=== PATIENT | male | born 1955 | race Caucasian/White ===

== ENCOUNTER 2018-12-14 05:38 | Day surgery (SDC) | payer OTHER ==
[~2018-12-14] VITALS: Ht 177.8 cm; Wt 99.3 kg
--- NOTE | ~2018-12-14 | O ---
[facility] [place] [address] OPERATIVE REPORT Name: GUILLE PERALTA Room #: 150-7 [facility] M..#: [id number] Admission: 12/14/18 ������������������ Attend Phys: Bill Fuentes MD Discharge: ������������������ Date of : 51 Report #: [id number] THIS REPORT FOR: //name// CC: Walker Fuentes DATE OF SERVICE: 12/14/2018 RESIDENTIAL DRIVER: None. PREOPERATIVE DIAGNOSIS: Unilateral left upper lid ptosis. POSTOPERATIVE DIAGNOSIS: Unilateral left upper lid ptosis. OPERATION PERFORMED: Unilateral left upper lid ptosis repair. ANESTHESIA: Local anesthesia with IV sedation. COMPLICATIONS: None. INDICATIONS FOR SURGERY: This patient has left upper lid ptosis with superior visual field loss. Visual field testing demonstrates dense superior visual defects. Retesting with the upper lid elevated shows an improvement in visual field loss of over 30% and in excess of 12 degrees. The current procedure is undertaken in order to improve the patient's visual function. Informed consent was obtained to include but not limited to the potential risks for bleeding, scarring, infection, loss of vision, failure to improve the problem, need for further surgery and need for adjustment of lid height. DESCRIPTION OF PROCEDURE: The patient was taken to the operating room, where a left upper lid crease was drawn with a skin marking pen. The incision was then made with Loreto scissors and dissected down to the orbital septum. Hemostasis was achieved with a monopolar cautery as it was throughout the case. The orbital septum was then entered and the preaponeurotic fat identified. The levator aponeurosis was then disinserted from the anterior surface of the tarsal plate and dissected free in the avascular Dubon's muscle plane. The aponeurosis was then advanced onto the anterior surface of the tarsal plate and reattached with mattress double-arm 6-0 Novafil sutures, adjusting for height and contour. The redundant aponeurosis was then amputated. The upper lid crease was then reformed with interrupted 6-0 chromic sutures. The skin was closed with interrupted 6-0 plain gut suture. The wound was then cleaned and dressed with ophthalmic antibiotic ointment. [address] [address] OPERATIVE REPORT Name: GUILLE PERALTA Room #: 150-7 [facility].#: [id number] Admission: 12/14/18 ������������������ Attend Phys: Bill Fuentes MD Discharge: ������������������ Date of : 51 Report #: [id number] The patient was then transported to the recovery area, having tolerated the procedure well with no anesthesia or operative complications being noted. ��������������������������������������������� ���������������������������������������� By: ��������������������������������������������� [id number] Bill Fuentes MD /nt
[~2018-12-14 05:38] MED LIST: AMBEREN PO; ASPIRIN EC81 M1 PO; AVELOX 400 MG400 MG PO; BACTRIM 400-801 EACH; BENTYL 10 MG CA10 M1 PO; BISOPROLOL FUMAR5 M1 PO; CHILDREN'S ALLE10 MG PO; CLARITIN10 MG PO; CLEOCIN HCL150 MG PO; FIBERCON625 M1 PO; FLOMAX0.4 MG PO; FLONASE 0.05%50 MCG NASAL; HYDROCODON-ACE1 EAC7; HYDROCODON-ACE1 EAC7 PO; MUCINEX600 MG PO; MULTI VITAMIN1 EACH PO; NEXIUM20 MG PO; OCUVITE TABLET1 EAC1 PO; PERCOCET 5-3251 EACH PO; PRILOSEC 20 MG20 MG PO; PROBIOTIC1 EAC1 PO; STOOL SOFTENER1 EAC2 PO; TYLENOL EXTRA500 MG PO; ZIAC 5-6.25 MG1 EACH PO
[2018-12-14 07:16] LABS: CALCIUM 8.8 mg/dL (8.5-10.1); CREATININE 1.3 mg/dL (0.7-1.3); POTASSIUM 3.5 mmol/L (3.5-5.1)
[2018-12-14 08:15] VITALS: BP 119/69
== END 2018-12-14 09:00 | disposition home or self-care (01) ==
LOC: OR 05:38 → TBA 05:38 → OR 06:33
PROVIDERS: Ophthalmology
DX: H02.412 Mechanical ptosis of left eyelid (principal); H53.452 Other localized visual field defect, left eye; I10 Essential (primary) hypertension; K21.9 Gastro-esophageal reflux disease without esophagitis; Z90.49 Acquired absence of other specified parts of digestive tract; Z98.890 Other specified postprocedural states; Z88.0 Allergy status to penicillin; Z79.82 Long term (current) use of aspirin; Z87.891 Personal history of nicotine dependence; Z79.899 Other long term (current) drug therapy
CPT/HCPCS: 50010; 50101; 50386; 50398; 51636; 56528; 56531; 70005

== ENCOUNTER → 2020-06-23 | Outpatient (CLI) | payer OTHER ==
[~2020-06-23] MED LIST changes: +BISOPROLOL-HCT1 EACH PO
== END ==
LOC: LAB 10:27
PROVIDERS: ATTEND Ophthalmology
DX: Z01.812 Encounter for preprocedural laboratory examination (principal); Z20.828 Contact with and (suspected) exposure to other viral communicable diseases

== ENCOUNTER 2020-06-26 07:19 | Day surgery (SDC) | payer OTHER ==
[~2020-06-26] VITALS: Ht 177.8 cm; Wt 103.9 kg
--- NOTE | ~2020-06-26 | O ---
[facility] [place] [address] OPERATIVE REPORT Name: GUILLE PERALTA Room #: 150-7 [facility] M.R.#: [id number] Admission: 06/26/20 Attend Phys: Bill Fuentes MD Discharge: Date of : 51 Report #: [id number] THIS REPORT FOR: cc: Walker Dejesus MD,Walker Fuentes,Bill Fulton MD ~ CC: ANDREW Fuentes DATE OF SERVICE: 06/26/2020 PREOPERATIVE DIAGNOSIS: Unilateral left sided nasal lacrimal duct obstruction. POSTOPERATIVE DIAGNOSIS: Unilateral left sided nasal lacrimal duct obstruction. OPERATION PERFORMED: Unilateral left sided endoscopic dacryoplasty with silicone intubation. ANESTHESIA: General. COMPLICATIONS: None. INDICATIONS FOR SURGERY: This patient has acquired unilateral nasal lacrimal duct stenosis with chronic tearing and discharge. The current procedures are undertaken in order to improve the patient's level of lacrimal outflow and visual clarity. Informed consent was obtained to include but not limited to the potential risks for damage to the eye, loss of vision, bleeding, infection, failure to improve the problem and need for further surgery. DESCRIPTION OF OPERATION: The patient was taken to the operating room, where general anesthesia was administered. The medial canthus was anesthetized with 2% Xylocaine with epinephrine mixed with equal parts of 0.75% Marcaine with Wydase. The lateral wall of the nose was then injected with the same anesthetic mixture. The nose was packed with Afrin-soaked Cottonoids. The patient was then prepped and draped in the usual sterile fashion. The superior and inferior puncta were then atraumatically dilated with a punctum dilator. A size 0 lacrimal probe was then passed through the superior canalicular system and through the stenosed nasal lacrimal duct. The nasal packing was removed and the endoscope was brought into the field. The inferior turbinate was gently infractured with a [place] periosteal elevator to allow visualization of the inferior meatus in the area of the opening of the valve of Hasner in the nose. The probe was found and confirmed to be in the proper [address] [address] OPERATIVE REPORT Name: FABIANGUILLE SIMEON Room #: 150-7 [facility] M.R.#: [id number] Admission: 06/26/20 Attend Phys: Bill Fuentes MD Discharge: Date of : 51 Report #: [id number] location. It was removed and subsequently replaced with a size 1 and a size 2 Garay probe, which also had their passage confirmed endoscopically to be in the proper location. A 3 x 15 LacriCatheter was lubricated with a small quantity of ophthalmic antibiotic ointment. The LacriCatheter was then passed through the superior canalicular system and the stenosed nasal lacrimal duct. The LacriCatheter was confirmed to be in the proper location endoscopically intranasally in the inferior meatus. The LacriCatheter was inflated to 9 atmospheres for 90 seconds and deflated. The catheter was then inflated to 9 atmospheres for 60 seconds. The catheter was then withdrawn to the proximal black ring. It was then inflated to 9 atmospheres for 90 seconds. The balloon was then deflated and reinflated to 9 atmospheres for 60 seconds. The balloon was the aspirated and withdrawn to the distal black ring. It was then inflated to 9 atmospheres for 90 seconds. The balloon was deflated and reinflated to 9 atmospheres for 60 seconds. The balloon was then deflated and vigorously aspirated as it was withdrawn through the superior canalicular system. A Vanegas tube was then passed through the superior canalicular system and out the dilated duct. The Vanegas tube was secured under the inferior turbinate in the inferior meatus with a Vanegas hook and retrieved endoscopically. The Vanegas tube was then passed through the inferior canalicular system in a similar fashion and was retrieved endoscopically in the nose atraumatically. The Vanegas tube was then secured to itself with 3 square throws and then to the lateral wall of the nose with a 5-0 Prolene suture. Antibiotic steroid drops were then placed in the eye. A small quantity of ophthalmic antibiotic ointment was placed on the Vanegas tube. The patient was then transported to the recovery area with no anesthetic or operative complications being noted. By: [id number] Bill Fuentes MD /nt
[2020-06-26 08:46] VITALS: BP 126/84
== END 2020-06-26 11:05 | disposition home or self-care (01) ==
LOC: OR 07:19 → TBA 07:20 → OR 09:24
PROVIDERS: ATTEND Ophthalmology
DX: H04.552 Acquired stenosis of left nasolacrimal duct (principal); I10 Essential (primary) hypertension; K21.9 Gastro-esophageal reflux disease without esophagitis; Z90.49 Acquired absence of other specified parts of digestive tract; Z98.890 Other specified postprocedural states; Z79.899 Other long term (current) drug therapy; Z87.891 Personal history of nicotine dependence; Z87.19 Personal history of other diseases of the digestive system; Z88.0 Allergy status to penicillin; Z88.8 Allergy status to other drugs, medicaments and biological substances
CPT/HCPCS: 50010; 50101; 50386; 50398; 51777; 55343; 56528; 62110; 62900; 64037; 70005

== ENCOUNTER 2021-10-29 08:58 | Inpatient (IN) | payer OTHER ==
[2021-10-29] VITALS (10 sets, daily range): BP systolic 113–146; BP diastolic 73–96
[~2021-10-29] VITALS: Ht 177.8 cm; Wt 105.7 kg
[2021-10-29 10:12] LABS: ABSOLUTE NEUTROPHILS 6.5 thou/uL (1.4-8.2); BASOPHILS 0.2 % (0.0-2.0); HEMATOCRIT 46.5 % (42.0-52.0); HEMOGLOBIN 15.7 gm/dL (14.0-18.0); LYMPHOCYTES 9.1 % (24.0-44.0); MCH 30.3 pg (26.0-34.0); MCHC 33.7 g/dL (28.0-37.0); MCV 89.8 fL (80.0-100.0); MONOCYTES 4.7 % (1.0-8.0); PLATELET COUNT 151 thou/uL (150-400); RBC 5.18 mil/uL (4.50-6.00); WBC 7.6 thou/uL (4.0-11.0)
[2021-10-29 10:20] LABS: CALCIUM 8.7 mg/dL (8.5-10.1); CREATININE 1.1 mg/dL (0.7-1.3); POTASSIUM 4.1 mmol/L (3.5-5.1)
[2021-10-29 11:17] LABS: URINE BILIRUBIN NEGATIVE (Negative); URINE BLOOD NEGATIVE (Negative); URINE CLARITY CLEAR; URINE COLOR YELLOW; URINE GLUCOSE-RANDOM* NEGATIVE (Negative); URINE KETONES NEGATIVE (Negative); URINE LEUKOCYTES-REFLEX NEGATIVE (Negative); URINE NITRITE-REFLEX NEGATIVE (Negative); URINE PROTEIN (DIPSTICK) NEGATIVE (Negative); URINE SPECIFIC GRAVITY 1.015 (1.005-1.035); URINE UROBILINOGEN 0.2 E.U./dl (0.2-1.0)
--- NOTE | 2021-10-29 13:48 | NUR ---
RECEIVED REPORT FROM RN, ROUNDED ON PT AND INTRIDUCED SELF, P ASSITED WITH REPOSITIONING, NO FURTHER NEEDS STATED AT THIS TIME. PT APPEARS O BE RESTING IN BED QUIETLY AND COMFORTABLY
--- NOTE | 2021-10-29 14:51 | NUR ---
REPOR CALLED TO FLOOR, GIVEN TO RN
--- NOTE | 2021-10-29 23:19 | NUR ---
PATIENT INFORMED NURSE THAT HE FELL ONTO THE FLOOR. STATED HIS L LEG GAVE WAY AND HE WENT DOWN ON ALL FOURS. NO ONE WITNESSED THE FALL. PATIENT IS ALERT AND ORIENTED X4. PATIENT WAS WALKING TO BATHROOM HE HAD DONE BEFORE. NO APPARENT INJURIES NOTED. THE BI SPECIALIST AND THE NURSE PRACTITIONER WERE BOTH NOTIFIED. INFORMED PATIENT HE WAS NOW A FALL RISK AND HE NEEDED TO CALL BEFORE HE GOT UP. FALL PRECAUTIONS ARE NOW IN PLACE. NEURO'S AND VS ARE STABLE.
[2021-10-30 08:00] VITALS: BP 154/99
--- NOTE | 2021-10-30 13:09 | NUR ---
INITIAL ASSESSMENT: SW reviewed chart and spoke with nursing and attending physician. Pt was admitted from home due to lower back pain. Pt with hx of spinal stenosis. Pt with L3 ruptured disc. Efforts to transfer pt to other [facility] for spinal surgery consult, were unsuccessful. Plan is for pt to discharge home tomorrow and follow up as an outpatient. SW met with pt at bedside. Introduced role of SW. Pt reports he lives at home. Prior to admission, he was independent with ADLs. Pt has a walker to use at home. PT/OT evals ordered today. No hx of HH or post-acute placement. Pt's PCP is Dr. Walker Ty. Pt states he will follow up with Dr. Ty on Tuesday and discuss options for spinal surgery referral. Pt is agreeable with discharge plan. Pt will have transportation home. No discharge needs identified at this time. SW is available to assist should needs arise.
[2021-10-30 20:28] VITALS: BP 137/85
[2021-10-31 02:28] VITALS: BP 100/62
--- NOTE | 2021-10-31 06:36 | NUR ---
PATIENT AOX4 MAKES NEEDS KNOWN. PAIN CONTROLLED THIS SHIFT. PATIENT UP AT MARTIN. PATIENT IN BED ASLEEP AT THIS TIME BREATHING REGULAR AND UNLABOURED.
[2021-10-31 07:00] VITALS: BP 159/105
--- NOTE | 2021-10-31 09:11 | NUR ---
ASSUMED PT CARE THIS AM. PT IS ALERT & ORIENTED X4. PT IS UP AD MARTIN. PT IS ON ROOM AIR. PT C/O OF PAIN ON THE BACK AND GIVEN PAIN MEDICATIONS PER PT REQUEST. PT IS ON ROOM AIR. PER PT LAST BM WAS ON 10/30. PT ON THE BED, BED ON THE LOWEST POSITION, SIDE RAILS UP, CALL LIGHT WITHIN REACH. WILL CONTINUE TO MONITOR PT. FOLLOW POC.
[2021-10-31] MEDS ORDERED: CYCLOBENZAPRINE5 MG PO (09:49)
[2021-10-31] MEDS ORDERED: MS CONTIN15 MG PO (09:50)
[2021-10-31] MEDS ORDERED: OXYCODONE HCL 55 MG PO (09:50)
[2021-10-31 10:57] VITALS: BP 159/105
== END 2021-10-31 12:59 | disposition home or self-care (01) | DRG 552 ==
LOC: ER 08:58 → EROBS 13:20 → 4S 13:20
PROVIDERS: Emergency Medicine; ADMIT Hospitalist; ATTEND Hospitalist
DX: M51.86 Other intervertebral disc disorders, lumbar region (principal); M48.061 Spinal stenosis, lumbar region without neurogenic claudication; I10 Essential (primary) hypertension; M51.36 Other intervertebral disc degeneration, lumbar region; R27.0 Ataxia, unspecified; M47.896 Other spondylosis, lumbar region; Z20.822 Contact with and (suspected) exposure to COVID-19; K21.9 Gastro-esophageal reflux disease without esophagitis; Z90.49 Acquired absence of other specified parts of digestive tract; Z88.0 Allergy status to penicillin; Z88.8 Allergy status to other drugs, medicaments and biological substances; Z87.891 Personal history of nicotine dependence; Z82.49 Family history of ischemic heart disease and other diseases of the circulatory system
CPT/HCPCS: 10195